=== PATIENT | female | born 1970 ===

== ENCOUNTER 2021-10-28 18:01 | Inpatient (IN) | payer MEDICAID ==
--- NOTE | 2021-10-28 18:12 | Emergency Department Report ---
ED Neuro Deficit HPI - General Stated Complaint: STROKE Time Seen by Provider: 10/28/21 18:04 - History of Present Illness Initial Comments: Patient is a 49-year-old female brought in by EMS for code stroke. Last known well time was approximately 15 minutes prior to arrival. EMS reports patient has had roughly 10 TIAs/CVAs in the past year. Her current symptoms include left-sided facial droop, left-sided weakness and numbness. - Related Data Allergies/Adverse Reactions: Allergies Allergy/AdvReac Type Severity Reaction Status Date / Time Penicillins Allergy Hives Verified 10/28/21 18:55 ED Review of Systems ROS: Stated complaint: STROKE Other details as noted in HPI Constitutional: denies: chills, fever Respiratory: denies: cough, shortness of breath, wheezing Cardiovascular: denies: chest pain, palpitations Gastrointestinal: denies: abdominal pain, nausea, diarrhea Musculoskeletal: denies: back pain, joint swelling, arthralgia Skin: denies: rash, lesions Neurological: denies: headache, weakness, paresthesias Psychiatric: denies: anxiety, depression ED Neuro Physical Exam - General Limitations: Physical Limitation General appearance: alert, in no apparent distress Suspected Stroke: Yes - Head Head exam: Present: atraumatic, normocephalic - Eye Eye exam: Present: normal appearance, EOMI - Respiratory Respiratory exam: Present: normal lung sounds bilaterally. Absent: respiratory distress - Cardiovascular Cardiovascular Exam: Present: regular rate, normal rhythm, normal heart sounds - GI/Abdominal GI/Abdominal exam: Present: soft. Absent: distended, tenderness - Rectal Rectal exam: Present: deferred - Neurological Exam Neurological exam: Present: alert, oriented X3 - NIHSS Assessment Interval: Baseline 1a. Level of Consciousness: alert/keenly responsive 1b. LOC Questions: answers both correctly 1c. LOC Commands: performs tasks correctly 2. Best Gaze: normal 3. Visual: no visual loss 4. Facial Palsy: unilateral complete paralysis 5b. Motor Arm Right: no drift 5a. Motor Arm Left: no movement 6a. Motor Leg Left: no movement 6b. Motor Leg Right: no drift 7. Limb Ataxia: absent 8. Sensory: severe/total sensory loss 9. Best Language: no aphasia 10. Dysarthria: mild/moderate dysarthria 11. Extinction/Inattention: no abnormality Total Score: 14 Stroke Severity: Moderate Stroke - Psychiatric Psychiatric exam: Present: normal affect, normal mood - Skin Skin exam: Present: warm, dry, intact, normal color ED Course Vital Signs 10/28/21 10/28/21 10/28/21 18:41 18:46 18:50 Temperature 97.8 F Pulse Rate 71 69 Pulse Rate [ Left Arm] Respiratory 10 L 20 Rate Respiratory Rate [Left Arm] Blood Pressure 119/63 Blood Pressure [Left Arm] O2 Sat by Pulse 99 Oximetry O2 Sat by Pulse Oximetry [Left Arm] 10/28/21 10/28/21 10/28/21 18:51 19:00 19:16 Temperature Pulse Rate 72 73 Pulse Rate [ Left Arm] Respiratory 16 18 12 Rate Respiratory Rate [Left Arm] Blood Pressure 112/58 126/71 Blood Pressure [Left Arm] O2 Sat by Pulse 99 100 Oximetry O2 Sat by Pulse Oximetry [Left Arm] 10/28/21 10/28/21 10/28/21 19:30 19:45 19:59 Temperature Pulse Rate 66 66 Pulse Rate [ 68 Left Arm] Respiratory 21 14 Rate Respiratory 14 Rate [Left Arm] Blood Pressure 123/69 120/65 Blood Pressure 124/64 [Left Arm] O2 Sat by Pulse 100 100 Oximetry O2 Sat by Pulse 100 Oximetry [Left Arm] 10/28/21 10/28/21 10/28/21 20:00 20:14 20:16 Temperature Pulse Rate 65 65 Pulse Rate [ 65 Left Arm] Respiratory 15 13 Rate Respiratory 13 Rate [Left Arm] Blood Pressure 119/66 118/71 Blood Pressure 122/67 [Left Arm] O2 Sat by Pulse 100 100 Oximetry O2 Sat by Pulse 100 Oximetry [Left Arm] 10/28/21 10/28/21 20:29 20:30 Temperature Pulse Rate 67 Pulse Rate [ 70 Left Arm] Respiratory 19 Rate Respiratory 14 Rate [Left Arm] Blood Pressure 123/72 Blood Pressure 123/72 [Left Arm] O2 Sat by Pulse 100 Oximetry O2 Sat by Pulse 100 Oximetry [Left Arm] - Lab Data Result diagrams: 10/28/21 Unknown 10/28/21 Unknown Lab Results 10/28/21 10/28/21 10/28/21 Range/Units Unknown Unknown Unknown WBC 4.4 L (4.5-11.0) K/mm3 RBC 3.91 (3.65-5.03) M/mm3 Hgb 12.4 (10.1-14.3) gm/dl Hct 35.9 (30.3-42.9) % MCV 92 (79-97) fl MCH 32 (28-32) pg MCHC 35 H (30-34) % RDW 12.9 L (13.2-15.2) % Plt Count 113 L (140-440) K/mm3 Lymph % (Auto) 33.2 (13.4-35.0) % [place] % (Auto) 7.8 H (0.0-7.3) % Eos % (Auto) 3.5 (0.0-4.3) % Baso % (Auto) 0.5 (0.0-1.8) % Lymph # (Auto) 1.5 (1.2-5.4) K/mm3 [place] # (Auto) 0.3 (0.0-0.8) K/mm3 Eos # (Auto) 0.2 (0.0-0.4) K/mm3 Baso # (Auto) 0.0 (0.0-0.1) K/mm3 Seg Neutrophils % 55.0 (40.0-70.0) % Seg Neutrophils # 2.4 (1.8-7.7) K/mm3 PT 14.7 (12.2-14.9) Sec. INR 1.03 (0.87-1.13) APTT 27.6 (24.2-36.6) Sec. Thrombin Time 25.7 H (15.1-19.6) Sec. Sodium 135 L (137-145) mmol/L Potassium 3.9 (3.6-5.0) mmol/L Chloride 101.5 (98-107) mmol/L Carbon Dioxide 22 (22-30) mmol/L Anion Gap 15 mmol/L BUN 14 (7-17) mg/dL Creatinine 0.5 L (0.6-1.2) mg/dL Estimated GFR > 60 ml/min BUN/Creatinine Ratio 28 % Glucose 432 H (65-100) mg/dL Calcium 8.5 (8.4-10.2) mg/dL Total Bilirubin 0.50 (0.1-1.2) mg/dL AST 63 H (5-40) units/L ALT 70 H (7-56) units/L Alkaline Phosphatase 253 H (35-129) units/L Total Creatine Kinase 34 (30-135) units/L CK-MB (CK-2) 1.5 (0.0-4.0) ng/mL CK-MB (CK-2) Rel Index 4.4 H (0-4) Troponin T < 0.010 (0.00-0.029) ng/mL Total Protein 6.8 (6.3-8.2) g/dL Albumin 3.3 L (3.9-5) g/dL Albumin/Globulin Ratio 0.9 % - Medical Decision Making Patient brought in by EMS for code stroke. CT head shows no acute abnormality. Telemetry neurology consult obtained. Stroke scale is 14. Patient is a candidate for tPA and agrees to treatment. tPA administration delayed as patient endorsed chest pain for which CTA chest was ordered. tPA initiated immediately after CTA results obtained. Approximately 20-30 minutes after initiation of severe depression complaint of chest pain. tPA infusion discontinued. No acute changes on EKG. I discussed case with ICU attending. Will admit ICU 24-hour observation. Critical care attestation.: If time is entered above; I have spent that time in minutes in the direct care of this critically ill patient, excluding procedure time. ED Disposition Clinical Impression: CVA (cerebral vascular accident) Disposition: 09 ADMITTED INPATIENT Is pt being admited?: Yes Condition: Stable
[2021-10-28 18:18] LABS: INR 1.03 (0.87-1.13)
[2021-10-28 18:19] LABS: Partial Thromboplastin Time 27.6 Sec. (24.2-36.6); Thrombin Time 25.7 Sec. (15.1-19.6)
[2021-10-28 18:25] LABS: Basophils % (Auto) 0.5 % (0.0-1.8); Eosinophils # (Auto) 0.2 K/mm3 (0.0-0.4); Eosinophils % (Auto) 3.5 % (0.0-4.3); Hematocrit 35.9 % (30.3-42.9); Hemoglobin 12.4 gm/dl (10.1-14.3); Lymphocytes # (Auto) 1.5 K/mm3 (1.2-5.4); Lymphocytes % (Auto) 33.2 % (13.4-35.0); Mean Corpuscular HGB Conc 35 % (30-34); Mean Corpuscular Volume 92 fl (79-97); Monocytes # (Auto) 0.3 K/mm3 (0.0-0.8); Monocytes % (Auto) 7.8 % (0.0-7.3); Platelet Count 113 K/mm3 (140-440); Red Blood Count 3.91 M/mm3 (3.65-5.03); Red Cell Distribution Width 12.9 % (13.2-15.2)
--- NOTE | 2021-10-28 18:33 | Cat Scan Report ---
Name of this patient is unknown at the time of this report. The patient study is labeled "emergency, medical (49 YF)." CT HEAD WITHOUT CONTRAST INDICATION / CLINICAL INFORMATION: Stroke symptoms. TECHNIQUE: All CT scans at this location are performed using CT dose reduction for ALARA by means of automated e xposure control. COMPARISON: None available. FINDINGS: HEMORRHAGE: No evidence of intracranial hemorrhage or extra-axial fluid collection. EXTRA-AXIAL SPACES: Cortical sulci, sylvian fissures and basilar cisterns have an unremarkable appear ance. VENTRICULAR SYSTEM: The third and lateral ventricles are of normal size and configuration. CEREBRAL PARENCHYMA: No areas of abnormal brain parenchymal attenuation are identified. There is no i ndication of recent infarction. MIDLINE SHIFT OR HERNIATION: There is no mass effect. CEREBELLUM / BRAINSTEM: Brainstem and cerebellum have an unremarkable appearance. MIDLINE STRUCTURES:No abnormalities of the pituitary gland or pineal region are identified. INTRACRANIAL VESSELS:No abnormalities are identified on this noncontrast head CT. ORBITS: visualized portions of the orbits have an unremarkable appearance. SOFT TISSUES of HEAD: No significant abnormality. CALVARIUM: Evaluation of bone windows reveals no abnormalities. PARANASAL SINUSES / MASTOID AIR CELLS: Visualized portions of the paranasal sinuses are free from inf lammatory mucosal disease. Mastoid air cells are normally pneumatized. ADDITIONAL FINDINGS: None. IMPRESSION: 1. No significant intracranial abnormality. CODE STROKE: Time of Communication (PRESCHOOL AIDE/CDT): 1727 Central standard time Licensed Practitioner Receiving Report: Dr. Gonsales of the [facility] emergency d epartment. Signer Name: Jamison Camarillo MD Signed: 10/28/2021 6:28 PM Workstation Name: [employer]
[2021-10-28 18:36] LABS: Creatine Kinase MB 1.5 ng/mL (0.0-4.0)
[2021-10-28 18:37] LABS: Alanine Aminotransferase 70 units/L (7-56); Albumin 3.3 g/dL (3.9-5); BUN/Creatinine Ratio 28; Blood Urea Nitrogen 14 mg/dL (7-17); Calcium 8.5 mg/dL (8.4-10.2); Hemolysis Index 10
--- NOTE | 2021-10-28 19:02 | Cat Scan Report ---
CT angio neck INDICATION / CLINICAL INFORMATION: 49 years Female; stroke sx 100ml of [id number]. TECHNIQUE: Thin cut axial images obtained through the head during IV bolus contrast administration. S agittal, coronal, and 3 plane MIP reconstructions performed by the technologist. NASCET type criteria used evaluate stenoses. All CT scans at this location are performed using CT dose reduction for ALAR A by means of automated exposure control. . COMPARISON: None available. FINDINGS: ARCH: Normal aortic arch branching suggested. CAROTID ARTERIES: The visualized common and internal carotid arteries are widely patent. Minimal athe rosclerotic disease seen. VERTEBRAL ARTERIES: Slight left dominant vertebral system seen. No significant stenosis appreciated. ADDITIONAL FINDINGS: Remainder of the surrounding soft tissues are grossly normal. IMPRESSION: No significant stenosis appreciated on this CTA of the neck. Signer Name: Chito Parker MD, III Signed: 10/28/2021 6:57 PM Workstation Name: [id number]
--- NOTE | 2021-10-28 19:05 | Cat Scan Report ---
CTA CHEST WITH CONTRAST INDICATION / CLINICAL INFORMATION: Chest pain stroke sx 100ml of [id number]. TECHNIQUE: Axial CT images were obtained through the chest after injection of IV contrast. [address] P and/or 3D reconstructions were produced. All CT scans at this location are performed using CT dose reduction for ALARA by means of automated exposure control. COMPARISON: None available. FINDINGS: PULMONARY EMBOLUS: None. THORACIC AORTA: No significant abnormality. HEART: No significant abnormality. CORONARY ARTERY CALCIFICATION: Present -- Mild. MEDIASTINUM / RAMO: No significant abnormality. PLEURA: No pleural effusion. No pneumothorax. LUNGS: No acute air space or interstitial disease. Accessory azygos fissure is incidentally noted. ADDITIONAL FINDINGS: None. UPPER ABDOMEN: No acute findings. SKELETAL STRUCTURES: No significant osseous abnormality. IMPRESSION: 1. No CT evidence for pulmonary embolism. 2. No acute findings. Signer Name: Imtiaz Morris MD Signed: 10/28/2021 7:01 PM Workstation Name: [id number]
[2021-10-28] MEDS ORDERED: ALTEPLASE 100 MG INJ KIT IV ONE ×2 (19:15)
[2021-10-28] MEDS ORDERED: SODIUM CHLORIDE 0.9% 50 ML IVPB IV ONE (19:15)
--- NOTE | 2021-10-28 19:39 | Cat Scan Report ---
CT angio head INDICATION / CLINICAL INFORMATION: 49 years Female; stroke sx 100ml of [id number]. TECHNIQUE: Thin cut axial images obtained through the head during IV bolus contrast administration. S agittal, coronal, and 3 plane MIP reconstructions performed by the technologist. NASCET type criteria used evaluate stenoses. Automated exposure control utilized for radiation reduction purposes. . COMPARISON: None available. FINDINGS: INTERNAL CAROTID ARTERIES: No significant narrowing appreciated. VERTEBROBASILAR SYSTEM: Slight left dominant vertebral artery is seen. 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 DISTAL BRANCHES: Distal branches of the anterior, middle, and posterior cerebral arteries are fairly symmetric in appearance and number. The P1 segment on the right is hypoplastic. A majority of blood flow to the right DIRECTOR OF PRIMARY CARE territory is vi a posterior communicating artery on the right. ANEURYSM: None identified. ADDITIONAL FINDINGS: Remainder of the surrounding soft tissues are grossly normal. IMPRESSION: 1. No significant narrowing appreciated on this CTA of the head. Signer Name: Chito Parker MD, III Signed: 10/28/2021 7:35 PM Workstation Name: [facility]ENTERIntegr[facility] Digital SolutionsASHLEY [email or web address] [id number]
[2021-10-28] MEDS ORDERED: PROMETHAZINE 25 MG RECT SUPP PR PRN (20:19)
[2021-10-28] MEDS ORDERED: ACETAMINOPHEN 325 MG TAB PO PRN (20:19)
[2021-10-28] MEDS ORDERED: ONDANSETRON 4 MG/2 ML INJ IV PRN (20:19)
[2021-10-28] MEDS ORDERED: METOCLOPRAMIDE 10 MG TAB PO PRN (20:19)
[2021-10-28] MEDS ORDERED: oxyCODONE /ACETAMINOPHEN 5-325MG TAB PO PRN (20:19)
[2021-10-28] MEDS ORDERED: MAGNESIUM HYDROXIDE (MOM) ORAL LIQD UDC PO PRN (20:19)
[2021-10-28] MEDS ORDERED: MORPHINE 4 MG/1 ML INJ IV PRN (20:19)
--- NOTE | 2021-10-28 20:23 | History and Physical Report ---
History of Present Illness Chief complaint: I feel weak on the left side and I could not talk History of present illness: 51 YO Female with recurrent CVA treated with Aspirin, Obesity, Seizure Disorder, DM presents ED for evaluation. Patient states that she had experienced a sudden onset of left-sided weakness facial droop and slurred speech. EMS was notified and upon arrival the patient was found to have a focal neurologic deficit. A code stroke was called and the patient was subsequently transported to [facility] for further care and evaluation of the aforementioned symptoms. The patient was seen and evaluated emergency department. All lab and imaging studies reviewed. Patient found to have clinical symptoms of acute CVA and was treated with tPA in the emergency department with improvement in symptoms. Patient admitted to ICU and initiated on CVA protocol. Critical care team consulted in ED. Patient de nies fever, chills, chest pain, palpitation, productive cough, trauma, skin rash, recent contact, or known exposure to COVID-19. No prior admission for review. No medication listed at time of admission for reconciliation. Advanced care planning conducted in ED. Past History Past Medical History: diabetes, seizures, stroke Past Surgical History: No surgical history, Other (Reviewed) Social history: , lives with family. denies: smoking, alcohol abuse, prescription drug abuse Family history: diabetes, hypertension Medications and Allergies Allergies Allergy/AdvReac Type Severity Reaction Status Date / Time Penicillins Allergy Hives Verified 10/28/21 18:55 Review of Systems Constitutional: no weight loss, no weight gain, no chills, no night sweats Ears, nose, mouth and throat: no ear pain, no tinnitis, no decreased hearing, no nasal congestion, no nasal discharge, no sinus pain Breasts: no change in shape, no swelling Cardiovascular: no chest pain, no palpitations, no rapid/irregular heart beat, no syncope, no lightheadedness Respiratory: no cough, no cough with sputum, no shortness of breath, no dyspnea on exertion Gastrointestinal: no abdominal pain, no vomiting, no diarrhea, no hematemesis Genitourinary Female: no pelvic pain, no flank pain, no dysuria Rectal: no pain, no incontinence, no bleeding Musculoskeletal: no neck stiffness, no shooting arm pain, no low back pain, no redness of joints Integumentary: no rash, no redness, no sores, no jaundice, no boils Neurological: weakness, numbness, change in speech, gait dysfunction Psychiatric: no anxiety, no change in sleep habits, no sleep disturbances, no hypersomnia, no change in appetite, no change in libido Endocrine: no cold intolerance, no polyphagia, no excessive thirst, no polyuria Hematologic/Lymphatic: no easy bruising, no easy bleeding Allergic/Immunologic: no urticaria, no allergic rhinitis, no wheezing Exam - Constitutional Vitals: Temp Pulse Resp BP Pulse Ox 97.8 F 65 13 122/67 100 10/28/21 18:50 10/28/21 20:14 10/28/21 20:14 10/28/21 20:14 10/28/21 20:14 General appearance: Present: mild distress, obese - EENT Eyes: Present: PERRL ENT: hearing intact, clear oral mucosa - Neck Neck: Present: supple, normal ROM - Respiratory Respiratory effort: normal Respiratory: bilateral: CTA - Cardiovascular Heart Sounds: Present: S1 & S2. Absent: rub, click - Extremities Extremities: pulses symmetrical, No edema Peripheral Pulses: within normal limits - Abdominal General gastrointestinal: Present: soft, non-tender, non-distended, normal bowel sounds Female genitourinary: Present: normal - Integumentary Integumentary: Present: clear, warm, dry - Musculoskeletal Musculoskeletal: left sided weakness - Psychiatric Psychiatric: appropriate mood/affect, intact judgment & insight - Neurologic Neurologic: CNII-XII intact, moves all extremities HEART Score - HEART Score Troponin: Troponin T < 0.010 ng/mL (0.00-0.029) 10/28/21 Unknown Results - Labs CBC & Chem 7: 10/28/21 Unknown 10/28/21 Unknown Labs: Abnormal lab results 10/28/21 10/28/21 10/28/21 Range/Units Unknown Unknown Unknown WBC 4.4 L (4.5-11.0) K/mm3 MCHC 35 H (30-34) % RDW 12.9 L (13.2-15.2) % Plt Count 113 L (140-440) K/mm3 [place] % (Auto) 7.8 H (0.0-7.3) % Thrombin Time 25.7 H (15.1-19.6) Sec. Sodium 135 L (137-145) mmol/L Creatinine 0.5 L (0.6-1.2) mg/dL Glucose 432 H (65-100) mg/dL AST 63 H (5-40) units/L ALT 70 H (7-56) units/L Alkaline Phosphatase 253 H (35-129) units/L CK-MB (CK-2) Rel Index 4.4 H (0-4) Albumin 3.3 L (3.9-5) g/dL Assessment and Plan - Patient Problems (1) CVA (cerebral vascular accident) Status: Acute Plan to address problem: CVA protocol: CT head, patient treated with tPA in the emergency department. Patient admitted to ICU. Critical care team consulted, monitor blood pressure per nursing care protocol, continue medical management. The high probability of a clinically significant, sudden or life threatening deterioration of the [neuro, endocrine] system(s) required my full and direct attention, intervention and personal management. The aggregate critical care time was [65] minutes. This time is in addition to time spent performing reported procedures but includes the following: [x] Data Review and interpretation [x] Patient assessment and monitoring of vital signs [x] Documentation [x] Medication orders and management (2) Left hemiparesis Status: Acute Plan to address problem: Physical therapy consulted (3) Seizure disorder Status: Acute Plan to address problem: No acute activity this time, continue medical management. (4) Obesity (BMI 30.0-34.9) Status: Acute Plan to address problem: Balanced diet, increase physical activity discharge. (5) Diabetes Status: Acute Plan to address problem: Consistent carbohydrate diet, Accu-Chek, insulin protocol, hypoglycemia protocol. (6) DVT prophylaxis Status: Acute Plan to address problem: SCDs bilateral lower extremities while in bed (7) Advance care planning Status: Acute Plan to address problem: Disease education data, care plan discussed, diagnosis discussed, prognosis discussed, patient is full code. Patient knowledges understanding and agreement with care plan, +30 minutes. (8) Preventative health care Status: Acute Plan to address problem: Patient counseled regarding risk factor reduction, antiplatelet therapy, outpatient follow-up with primary care physician for all age and risk factor appropriate screening test. +30 minutes.
[2021-10-28] MEDS ORDERED: SODIUM CHLORIDE 0.9% 1000 ML 1,000 ML IV ONE (20:27)
[2021-10-28] MEDS ORDERED: INSULIN REGULAR, HUMAN 100 UNITS/1 ML IV ONE ×2 (20:28→20:58)
[2021-10-28] MEDS ORDERED: DEXTROSE 50% IN WATER (25GM) 50 ML SYRINGE IV PRN (20:38)
[2021-10-28] MEDS ORDERED: MORPHINE 4 MG/1 ML INJ IV ONE (20:47)
[2021-10-29 06:33] LABS: Chol/HDL Ratio 3.52 %
--- NOTE | 2021-10-29 09:04 | Consultation ---
History of Present Illness Consult date: 10/29/21 Requesting physician: SOLOMON REYES Reason for consult: other (CVA s/pTPA) History of present illness: This is a 51-year-old female with known past medical history of recurrent TIA/CVA, seizure disorder, type 2 DM, and current tobacco dependence admitted for acute CVA s/p tPA She has been admitted into the ICU for neuro checks and monitoring post tPA. Patient seen and examined. Vitals,labs, medications, chart and imaging reviewed. She denies any chest pain, no shortness of breath No fevers or chills. her is at the bedside. Past History Past Medical History: diabetes, seizures, stroke Past Surgical History: No surgical history, Other (Reviewed) Social history: , lives with family. denies: smoking, alcohol abuse, prescription drug abuse Family history: diabetes, hypertension Medications and Allergies Allergies Allergy/AdvReac Type Severity Reaction Status Date / Time Penicillins Allergy Hives Verified 10/28/21 18:55 Home Medications Medication Instructions Recorded Confirmed Last Taken Type Dilantin 300 mg PO QHS 10/29/21 10/29/21 Unknown History Aspirin 325 mg PO QDAY #90 tablet 10/30/21 Unknown Rx AtorvaSTATin [Lipitor] 40 mg PO QHS #90 tablet 10/30/21 Unknown Rx Insulin Glargine [Lantus VIAL] 15 units SUB-Q QHS #90 vial 10/30/21 Unknown Rx Lispro Insulin [HumaLOG] See Protocol SUB-Q ACHS #90 vial 10/30/21 Unknown Rx Active Meds: Active Medications Acetaminophen (Acetaminophen 325 Mg Tab) 650 mg PO Q4H PRN PRN Reason: Pain, Mild (1-3) Aspirin (Aspirin 325 Mg Tab) 325 mg PO QDAY ANN MARIE Atorvastatin Calcium (Atorvastatin 40 Mg Tab) 40 mg PO QHS ANN MARIE Last Admin: 10/29/21 03:17 Dose: 40 mg Bisacodyl (Bisacodyl 10 Mg Rect Supp) 10 mg [place] QDAY PRN PRN Reason: Constipation Dextrose (Dextrose 50% In Water (25gm) 50 Ml Syringe) 50 ml IV Q30MIN PRN; Protocol PRN Reason: Hypoglycemia Insulin Human Lispro (Insulin Lispro 100 Unit/Ml) 0 unit SUB-Q Q6HR ANN MARIE; Protocol Magnesium Hydroxide (Magnesium Hydroxide (Mom) Oral Liqd Udc) 30 ml PO Q4H PRN PRN Reason: Constipation Metoclopramide HCl (Metoclopramide 10 Mg Tab) 10 mg PO Q6H PRN PRN Reason: Nausea And Vomiting Morphine Sulfate (Morphine 4 Mg/1 Ml Inj) 2 mg IV Q14H PRN PRN Reason: Pain , Severe (7-10) Ondansetron HCl (Ondansetron 4 Mg/2 Ml Inj) 4 mg IV Q8H PRN PRN Reason: Nausea And Vomiting Oxycodone/Acetaminophen (Oxycodone /Acetaminophen 5-325mg Tab) 1 tab PO Q6H PRN PRN Reason: Pain, Moderate (4-6) Promethazine HCl (Promethazine 25 Mg Rect Supp) 25 mg [place] Q6H PRN PRN Reason: Nausea And Vomiting Sodium Chloride (Sodium Chloride 0.9% 10 Ml Flush Syringe) 10 ml IV PRN PRN PRN Reason: LINE FLUSH Review of Systems Constitutional: no weight loss, no weight gain, no fever, no chills Respiratory: no cough, no cough with sputum, no hemoptysis, no shortness of breath, no dyspnea on exertion Gastrointestinal: no abdominal pain, no nausea, no vomiting, no diarrhea Neurological: no paralysis, no weakness, no parathesias, no seizures, no ataxia Psychiatric: no anxiety, no memory loss, no disorientation, no hallucinations Physical Examination Vital signs: Vital Signs Pulse Resp 71 10 L 10/28/21 18:41 10/28/21 18:41 General appearance: no acute distress, alert Eyes: non-icteric ENT: oropharynx moist Neck: supple, no lymphadenopathy, no JVD Effort: normal Ascultation: Bilateral: clear Cardiovascular: regular rate and rhythm, other (S1,S2) Gastrointestinal: normoactive bowel sounds, soft, non-tender Integumentary: normal Extremities: no cyanosis, no edema, pulses normal normal mental status, non-focal exam, pupils equal and round, motor strength normal and mood appropriate, affect normal Results - Laboratory Findings CBC and BMP: 10/30/21 04:21 10/30/21 04:21 PT/INR, D-dimer PT 14.7 Sec. (12.2-14.9) 10/28/21 Unknown INR 1.03 (0.87-1.13) 10/28/21 Unknown Abnormal lab findings: Abnormal Labs 10/28/21 10/28/21 10/28/21 20:50 Unknown Unknown WBC 4.4 L MCHC 35 H RDW 12.9 L Plt Count 113 L [place] % (Auto) 7.8 H Thrombin Time 25.7 H Sodium Creatinine Glucose POC Glucose 329 H AST ALT Alkaline Phosphatase CK-MB (CK-2) Rel Index Albumin HDL Cholesterol 10/28/21 10/29/21 Unknown 06:03 WBC MCHC RDW Plt Count [place] % (Auto) Thrombin Time Sodium 135 L Creatinine 0.5 L Glucose 432 H POC Glucose AST 63 H ALT 70 H Alkaline Phosphatase 253 H CK-MB (CK-2) Rel Index 4.4 H Albumin 3.3 L HDL Cholesterol 38 L - Diagnostic Findings Chest x-ray: image reviewed CT scan - chest: image reviewed Assessment and Plan Acute CVA (Cerebrovascular Accident) s/p tPA History of multiple TIA/CVA - Presented with sudden onset of left-sided weakness, left facial droop, and slurred speech - CT head with No acute findings; CTA Neck/head with no significant stenosis - TeleNeurology saw patient in the ED, - tPA was administered, however patient did not complete full dose. tPA was held due to patient c/o CP - Symptoms resolved this am, no neuro deficits appreciated - Repeat CT head/brain 24hrs post tPA - MRI brain and 2D Echo pending - Statin initiated - ASA and prophy AC to start tomorrow, 24hrs post TPA - Continue Neuro check per protocol - PT/OT/Speech ordered - Neurology consulted Chest Pain-resolved - Patient c/o of CP in the ED while receiving tPA. Did not complete tPA dose - EKG with SR, no significant ST changes appreciated - Troponin neg X1 - Patient denied any CP, palpitation, nor any discomfort this am - CTA chest reviewed no evidence of PE - Continue CP protocol - ASA and prophy AC to start tomorrow, 24hrs post TPA Type 2 Diabetes Mellitus with Hyperglycemia h/o Seizure Disorde Current Cigarette Smoker - Smoking cessation education provided - Nicotine withdrawal precautions Obesity (BMI 30.0-34.9) DVT Prophylaxis - PPI- Pepcid - SCDs to bilateral lower extremities while in bed The high probability of a clinically significant, sudden or life threatening deterioration of the Neurology system(s) required my full and direct attention, intervention and personal management. The aggregate critical care time was [32] minutes. This time is in addition to time spent performing reported procedures but includes the following: [x] Data Review and interpretation [x] Patient assessment and monitoring of vital signs [x] Documentation
[2021-10-29] MEDS ORDERED: ASPIRIN 325 MG TAB PO SCH (10:00)
--- NOTE | 2021-10-29 10:23 | Progress Note ---
<ANDREWS GARCIA - Last Filed: 10/29/21 17:52> Assessment and Plan Assessment and plan: This is a 51-year-old female with known past medical history of recurrent TIA/CVA, seizure disorder, type 2 DM, and current tobacco dependence admitted for acute CVA s/p tPA Hospital Course to Date: 10/29: Fully AAO, on RA, no neuro deficits appreciated. Will repeat CT head/brain 24hrs post tPA. MRI brain and 2D echo also pending. Neurology consulted. Statin initiated, ASA and proph AC to start tomorrow, 24hrs post tPA. PT/OT/Speech ordered. Thorough discussion with patient in regards of condition and plan of care at the bedside. All questions and concerns were addressed at this time. Possible transfer to Telemetry in the morning if patient remains stable. [facility] is also following. Assessment and Plan #Acute CVA (Cerebrovascular Accident) s/p tPA #History of multiple TIA/CVA - Presented with sudden onset of left-sided weakness, left facial droop, and slurred speech - CT head with No acute findings; CTA Neck/head with no significant stenosis - TeleNeurology saw patient in the ED, - tPA was administered, however patient did not complete full does. tPA was held due to patient c/o CP - Symptoms resolved this am, no neuro deficits appreciated - Repeat CT head/brain 24hrs post tPA - MRI brain and 2D Echo pending - Statin initiated - ASA and prophy AC to start tomorrow, 24hrs post TPA - Continue Neuro check per protocol - PT/OT/Speech ordered - Neurology consulted - [facility]CM is also following #Chest Pain-resolved - Patient c/o of CP in the ED while receiving tPA. tPA was hel - EKG with SR, no significant ST changes appreciated - Troponin neg X1 - Patient denied any CP, palpitation, nor any discomfort this am - CTA chest reviewed no evidence of PE - Continue CP protocol - ASA and prophy AC to start tomorrow, 24hrs post TPA #Type 2 Diabetes Mellitus with Hyperglycemia - Insulin dependent per patient, however, patient can't recall insulin name - Family to bring medications list - Hgb A1c pending - SSI and BG check initiated ACHS - Lantus also added qhs for better control - While critically ill target blood glucose of 140-180 #Seizure Disorder - No acute activity this time, continue medical management. - Patient voiced she was on Dilantin, but she has not taking it for over a year - Resume home meds once list is available #Current Cigarette Smoker - Over 30 years cigarettes smoker, per patient a pack of cigarette last her a week - Smoking cessation education provided and quit line resource provided. Patient verbalized understanding and agree with current info - Nicotine patch ordered #Obesity (BMI 30.0-34.9) - Balanced diet, increase physical activity discharge. #GI/DVT Prophylaxis - PPI- Pepcid - SCDs to bilateral lower extremities while in bed #Advance Care Planning - Disease education data, care plan, diagnoses, and prognosis were discussed with patient at the bedside. Patient is a FULL code. Patient acknowledged understanding and agreed with current care plan. The high probability of a clinically significant, sudden or life threatening deterioration of the [multiple] system(s) required my full and direct attention, intervention and personal management. The aggregate critical care time was [60] minutes. This time is in addition to time spent performing reported procedures but includes the following: [x] Data Review and interpretation [x] Patient assessment and monitoring of vital signs [x] Documentation [x] Medication orders and management Disposition Plan: ICU Total Time Spent with Patient (Minutes): 60 History Interval history: Patient seen and examined at the bedside. Fully AAO, on RA, denied any pain nor any discomfort at this time. Patient is s/p tPA, no neuro deficits appreciated, VSS Hospitalist Physical - Constitutional Vitals: Temp Pulse Resp BP Pulse Ox 97.8 F 61 17 132/60 100 10/28/21 18:50 10/29/21 10:10 10/29/21 10:10 10/29/21 10:10 10/29/21 10:10 General appearance: Present: no acute distress - EENT Eyes: Present: PERRL, EOM intact ENT: hearing intact, clear oral mucosa - Neck Neck: Present: normal ROM - Respiratory Respiratory effort: normal Respiratory: bilateral: diminished - Cardiovascular Rhythm: regular Heart Sounds: Present: S1 & S2 - Extremities Extremities: no ischemia, pulses intact, pulses symmetrical Peripheral Pulses: within normal limits - Abdominal General gastrointestinal: soft, non-distended, normal bowel sounds - Integumentary Integumentary: Present: clear, warm, dry - Psychiatric Psychiatric: appropriate mood/affect, cooperative - Neurologic Neurologic: CNII-XII intact, moves all extremities - Allied Health Allied health notes reviewed: nursing HEART Score - HEART Score Troponin: Troponin T < 0.010 ng/mL (0.00-0.029) 10/28/21 Unknown Results - Labs CBC & Chem 7: 10/28/21 Unknown 10/28/21 Unknown Labs: Laboratory Last Values WBC 4.4 K/mm3 (4.5-11.0) L 10/28/21 Unknown RBC 3.91 M/mm3 (3.65-5.03) 10/28/21 Unknown Hgb 12.4 gm/dl (10.1-14.3) 10/28/21 Unknown Hct 35.9 % (30.3-42.9) 10/28/21 Unknown MCV 92 fl (79-97) 10/28/21 Unknown MCH 32 pg (28-32) 10/28/21 Unknown MCHC 35 % (30-34) H 10/28/21 Unknown RDW 12.9 % (13.2-15.2) L 10/28/21 Unknown Plt Count 113 K/mm3 (140-440) L 10/28/21 Unknown Lymph % (Auto) 33.2 % (13.4-35.0) 10/28/21 Unknown [place] % (Auto) 7.8 % (0.0-7.3) H 10/28/21 Unknown Eos % (Auto) 3.5 % (0.0-4.3) 10/28/21 Unknown Baso % (Auto) 0.5 % (0.0-1.8) 10/28/21 Unknown Lymph # (Auto) 1.5 K/mm3 (1.2-5.4) 10/28/21 Unknown [place] # (Auto) 0.3 K/mm3 (0.0-0.8) 10/28/21 Unknown Eos # (Auto) 0.2 K/mm3 (0.0-0.4) 10/28/21 Unknown Baso # (Auto) 0.0 K/mm3 (0.0-0.1) 10/28/21 Unknown Seg Neutrophils % 55.0 % (40.0-70.0) 10/28/21 Unknown Seg Neutrophils # 2.4 K/mm3 (1.8-7.7) 10/28/21 Unknown PT 14.7 Sec. (12.2-14.9) 10/28/21 Unknown INR 1.03 (0.87-1.13) 10/28/21 Unknown APTT 27.6 Sec. (24.2-36.6) 10/28/21 Unknown Thrombin Time 25.7 Sec. (15.1-19.6) H 10/28/21 Unknown Sodium 135 mmol/L (137-145) L 10/28/21 Unknown Potassium 3.9 mmol/L (3.6-5.0) 10/28/21 Unknown Chloride 101.5 mmol/L (98-107) 10/28/21 Unknown Carbon Dioxide 22 mmol/L (22-30) 10/28/21 Unknown Anion Gap 15 mmol/L 10/28/21 Unknown BUN 14 mg/dL (7-17) 10/28/21 Unknown Creatinine 0.5 mg/dL (0.6-1.2) L 10/28/21 Unknown Estimated GFR > 60 ml/min 10/28/21 Unknown BUN/Creatinine Ratio 28 % 10/28/21 Unknown Glucose 432 mg/dL (65-100) H 10/28/21 Unknown POC Glucose 260 mg/dL (70-105) H 10/29/21 08:05 Calcium 8.5 mg/dL (8.4-10.2) 10/28/21 Unknown Total Bilirubin 0.50 mg/dL (0.1-1.2) 10/28/21 Unknown AST 63 units/L (5-40) H 10/28/21 Unknown ALT 70 units/L (7-56) H 10/28/21 Unknown Alkaline Phosphatase 253 units/L (35-129) H 10/28/21 Unknown Total Creatine Kinase 34 units/L (30-135) 10/28/21 Unknown CK-MB (CK-2) 1.5 ng/mL (0.0-4.0) 10/28/21 Unknown CK-MB (CK-2) Rel Index 4.4 (0-4) H 10/28/21 Unknown Troponin T < 0.010 ng/mL (0.00-0.029) 10/28/21 Unknown Total Protein 6.8 g/dL (6.3-8.2) 10/28/21 Unknown Albumin 3.3 g/dL (3.9-5) L 10/28/21 Unknown Albumin/Globulin Ratio 0.9 % 10/28/21 Unknown Triglycerides 126 mg/dL (2-149) 10/29/21 06:03 Cholesterol 134 mg/dL (50-199) 10/29/21 06:03 LDL Cholesterol Direct 76 mg/dL (50-130) 10/29/21 06:03 HDL Cholesterol 38 mg/dL (40-59) L 10/29/21 06:03 Cholesterol/HDL Ratio 3.52 % 10/29/21 06:03 Active Medications - Current Medications Current Medications: Generic Name Dose Route Start Last Admin Trade Name Freq PRN Reason Stop Dose Admin Acetaminophen 650 mg 10/28/21 20:19 Acetaminophen 325 Mg Tab PO Q4H PRN Pain, Mild (1-3) Aspirin 325 mg 10/30/21 10:00 Aspirin 325 Mg Tab PO QDAY [facility] Atorvastatin Calcium 40 mg 10/28/21 22:00 10/29/21 03:17 Atorvastatin 40 Mg Tab PO 40 mg QHS [facility] Administration Bisacodyl 10 mg 10/28/21 20:19 Bisacodyl 10 Mg Rect Supp [place] QDAY PRN Constipation Dextrose 50 ml 10/28/21 20:38 Dextrose 50% In Water (25gm) 50 Ml Syringe IV Q30MIN PRN Hypoglycemia Protocol Insulin Human Lispro 0 unit 10/29/21 21:00 Insulin Lispro 100 Unit/Ml SUB-Q Q6HR [facility] Protocol Magnesium Hydroxide 30 ml 10/28/21 20:19 Magnesium Hydroxide (Mom) Oral Liqd Udc PO Q4H PRN Constipation Metoclopramide HCl 10 mg 10/28/21 20:19 Metoclopramide 10 Mg Tab PO Q6H PRN Nausea And Vomiting Morphine Sulfate 2 mg 10/28/21 20:19 Morphine 4 Mg/1 Ml Inj IV Q14H PRN Pain , Severe (7-10) Ondansetron HCl 4 mg 10/28/21 20:19 Ondansetron 4 Mg/2 Ml Inj IV Q8H PRN Nausea And Vomiting Oxycodone/Acetaminophen 1 tab 10/28/21 20:19 Oxycodone /Acetaminophen 5-325mg Tab PO Q6H PRN Pain, Moderate (4-6) Promethazine HCl 25 mg 10/28/21 20:19 Promethazine 25 Mg Rect Supp [place] Q6H PRN Nausea And Vomiting Sodium Chloride 10 ml 10/28/21 20:19 Sodium Chloride 0.9% 10 Ml Flush Syringe IV PRN PRN LINE FLUSH <ZORAIDA DIETRICH - Last Filed: 10/30/21 07:30> Assessment and Plan Assessment and plan: I saw and evaluated the patient. I agree with the findings and the plan of care as documented in the Nurse Practitioner's~note, with the following corrections and additions. Hospitalist Physical - Constitutional Vitals: Temp Pulse Resp BP Pulse Ox 98.1 F 56 L 17 134/69 99 10/30/21 03:00 10/30/21 07:00 10/30/21 07:00 10/30/21 07:00 10/30/21 07:00 HEART Score - HEART Score Troponin: Troponin T < 0.010 ng/mL (0.00-0.029) 10/28/21 Unknown Results - Labs CBC & Chem 7: 10/30/21 04:21 10/30/21 04:21 Labs: Laboratory Last Values WBC 3.8 K/mm3 (4.5-11.0) L 10/30/21 04:21 RBC 4.14 M/mm3 (3.65-5.03) 10/30/21 04:21 Hgb 12.5 gm/dl (10.1-14.3) 10/30/21 04:21 Hct 37.8 % (30.3-42.9) 10/30/21 04:21 MCV 92 fl (79-97) 10/30/21 04:21 MCH 30 pg (28-32) 10/30/21 04:21 MCHC 33 % (30-34) 10/30/21 04:21 RDW 12.8 % (13.2-15.2) L 10/30/21 04:21 Plt Count 103 K/mm3 (140-440) L 10/30/21 04:21 Lymph % (Auto) 33.2 % (13.4-35.0) 10/28/21 Unknown [place] % (Auto) 7.8 % (0.0-7.3) H 10/28/21 Unknown Eos % (Auto) 3.5 % (0.0-4.3) 10/28/21 Unknown Baso % (Auto) 0.5 % (0.0-1.8) 10/28/21 Unknown Lymph # (Auto) 1.5 K/mm3 (1.2-5.4) 10/28/21 Unknown [place] # (Auto) 0.3 K/mm3 (0.0-0.8) 10/28/21 Unknown Eos # (Auto) 0.2 K/mm3 (0.0-0.4) 10/28/21 Unknown Baso # (Auto) 0.0 K/mm3 (0.0-0.1) 10/28/21 Unknown Seg Neutrophils % 55.0 % (40.0-70.0) 10/28/21 Unknown Seg Neutrophils # 2.4 K/mm3 (1.8-7.7) 10/28/21 Unknown PT 14.8 Sec. (12.2-14.9) 10/30/21 04:21 INR 1.04 (0.87-1.13) 10/30/21 04:21 APTT 29.2 Sec. (24.2-36.6) 10/30/21 04:21 Thrombin Time 25.7 Sec. (15.1-19.6) H 10/28/21 Unknown Sodium 136 mmol/L (137-145) L 10/30/21 04:21 Potassium 3.9 mmol/L (3.6-5.0) 10/30/21 04:21 Chloride 101.0 mmol/L (98-107) 10/30/21 04:21 Carbon Dioxide 27 mmol/L (22-30) 10/30/21 04:21 Anion Gap 12 mmol/L 10/30/21 04:21 BUN 10 mg/dL (7-17) 10/30/21 04:21 Creatinine 0.4 mg/dL (0.6-1.2) L 10/30/21 04:21 Estimated GFR > 60 ml/min 10/30/21 04:21 BUN/Creatinine Ratio 25 % 10/30/21 04:21 Glucose 239 mg/dL (65-100) H 10/30/21 04:21 POC Glucose 355 mg/dL (70-105) H 10/29/21 21:39 Hemoglobin A1c 8.6 % (4-6) H 10/29/21 10:57 Calcium 8.4 mg/dL (8.4-10.2) 10/30/21 04:21 Total Bilirubin 0.50 mg/dL (0.1-1.2) 10/28/21 Unknown AST 63 units/L (5-40) H 10/28/21 Unknown ALT 70 units/L (7-56) H 10/28/21 Unknown Alkaline Phosphatase 253 units/L (35-129) H 10/28/21 Unknown Total Creatine Kinase 34 units/L (30-135) 10/28/21 Unknown CK-MB (CK-2) 1.5 ng/mL (0.0-4.0) 10/28/21 Unknown CK-MB (CK-2) Rel Index 4.4 (0-4) H 10/28/21 Unknown Troponin T < 0.010 ng/mL (0.00-0.029) 10/28/21 Unknown Total Protein 6.8 g/dL (6.3-8.2) 10/28/21 Unknown Albumin 3.3 g/dL (3.9-5) L 10/28/21 Unknown Albumin/Globulin Ratio 0.9 % 10/28/21 Unknown Triglycerides 126 mg/dL (2-149) 10/29/21 06:03 Cholesterol 134 mg/dL (50-199) 10/29/21 06:03 LDL Cholesterol Direct 76 mg/dL (50-130) 10/29/21 06:03 HDL Cholesterol 38 mg/dL (40-59) L 10/29/21 06:03 Cholesterol/HDL Ratio 3.52 % 10/29/21 06:03 [place]/IV: Voiding Method Toilet Active Medications - Current Medications Current Medications: Generic Name Dose Route Start Last Admin Trade Name Freq PRN Reason Stop Dose Admin Acetaminophen 650 mg 10/28/21 20:19 10/29/21 11:42 Acetaminophen 325 Mg Tab PO 650 mg Q4H PRN Administration Pain, Mild (1-3) Aspirin 325 mg 10/30/21 10:00 Aspirin 325 Mg Tab PO QDAY ANNM ARIE Atorvastatin Calcium 40 mg 10/28/21 22:00 10/29/21 21:42 Atorvastatin 40 Mg Tab PO 40 mg QHS ANN MARIE Administration Bisacodyl 10 mg 10/28/21 20:19 Bisacodyl 10 Mg Rect Supp [place] QDAY PRN Constipation Dextrose 50 ml 10/28/21 20:38 Dextrose 50% In Water (25gm) 50 Ml Syringe IV Q30MIN PRN Hypoglycemia Protocol Famotidine 20 mg 10/30/21 10:00 Famotidine 20 Mg Tab PO QDAY [facility] Insulin Glargine 10 units 10/29/21 22:00 10/29/21 21:40 Insulin Glargine 100 Units/Ml SUB-Q 10 units QHS [facility] Administration Insulin Human Lispro 0 unit 10/29/21 11:30 10/29/21 21:48 Insulin Lispro 100 Unit/Ml SUB-Q 8 unit ACHS [facility] Administration Protocol Magnesium Hydroxide 30 ml 10/28/21 20:19 Magnesium Hydroxide (Mom) Oral Liqd Udc PO Q4H PRN Constipation Metoclopramide HCl 10 mg 10/28/21 20:19 Metoclopramide 10 Mg Tab PO Q6H PRN Nausea And Vomiting Morphine Sulfate 2 mg 10/28/21 20:19 Morphine 4 Mg/1 Ml Inj IV Q14H PRN Pain , Severe (7-10) Nicotine 14 mg 10/30/21 10:00 Nicotine 14 Mg/24 Hr Patch TD QDAY [facility] Ondansetron HCl 4 mg 10/28/21 20:19 Ondansetron 4 Mg/2 Ml Inj IV Q8H PRN Nausea And Vomiting Oxycodone/Acetaminophen 1 tab 10/28/21 20:19 Oxycodone /Acetaminophen 5-325mg Tab PO Q6H PRN Pain, Moderate (4-6) Promethazine HCl 25 mg 10/28/21 20:19 Promethazine 25 Mg Rect Supp [place] Q6H PRN Nausea And Vomiting Sodium Chloride 10 ml 10/28/21 20:19 Sodium Chloride 0.9% 10 Ml Flush Syringe IV PRN PRN LINE FLUSH
[2021-10-29] MEDS: INSULIN LISPRO 100 UNIT/ML SUB-Q SCH ×3 (11:42→21:48)
--- NOTE | 2021-10-29 12:56 | Consultation ---
History of Present Illness Consult date: 10/29/21 Chief complaint: CVA History of present illness: Consult for post TPA patient now back to [place]. Past History Past Medical History: diabetes, seizures, stroke Past Surgical History: No surgical history, Other (Reviewed) Social history: , lives with family. denies: smoking, alcohol abuse, prescription drug abuse Family history: diabetes, hypertension Medications and Allergies Allergies Allergy/AdvReac Type Severity Reaction Status Date / Time Penicillins Allergy Hives Verified 10/28/21 18:55 Home Medications Medication Instructions Recorded Confirmed Last Taken Type Dilantin 300 mg PO QHS 10/29/21 10/29/21 Unknown History Active Meds: Active Medications Acetaminophen (Acetaminophen 325 Mg Tab) 650 mg PO Q4H PRN PRN Reason: Pain, Mild (1-3) Last Admin: 10/29/21 11:42 Dose: 650 mg Aspirin (Aspirin 325 Mg Tab) 325 mg PO QDAY [facility] Atorvastatin Calcium (Atorvastatin 40 Mg Tab) 40 mg PO QHS [facility] Last Admin: 10/29/21 03:17 Dose: 40 mg Bisacodyl (Bisacodyl 10 Mg Rect Supp) 10 mg [place] QDAY PRN PRN Reason: Constipation Dextrose (Dextrose 50% In Water (25gm) 50 Ml Syringe) 50 ml IV Q30MIN PRN; Protocol PRN Reason: Hypoglycemia Insulin Human Lispro (Insulin Lispro 100 Unit/Ml) 0 unit SUB-Q [facility]; Protocol Last Admin: 10/29/21 11:42 Dose: 6 unit Magnesium Hydroxide (Magnesium Hydroxide (Mom) Oral Liqd Udc) 30 ml PO Q4H PRN PRN Reason: Constipation Metoclopramide HCl (Metoclopramide 10 Mg Tab) 10 mg PO Q6H PRN PRN Reason: Nausea And Vomiting Morphine Sulfate (Morphine 4 Mg/1 Ml Inj) 2 mg IV Q14H PRN PRN Reason: Pain , Severe (7-10) Ondansetron HCl (Ondansetron 4 Mg/2 Ml Inj) 4 mg IV Q8H PRN PRN Reason: Nausea And Vomiting Oxycodone/Acetaminophen (Oxycodone /Acetaminophen 5-325mg Tab) 1 tab PO Q6H PRN PRN Reason: Pain, Moderate (4-6) Promethazine HCl (Promethazine 25 Mg Rect Supp) 25 mg [place] Q6H PRN PRN Reason: Nausea And Vomiting Sodium Chloride (Sodium Chloride 0.9% 10 Ml Flush Syringe) 10 ml IV PRN PRN PRN Reason: LINE FLUSH Physical Examination - Vital Signs Vital Signs: Vital Signs Pulse Resp 71 10 L 10/28/21 18:41 10/28/21 18:41 - Physical Exam Narrative exam: The patient is alert , moves all 4 extremities , gait is normal . Results - Laboratory Findings CBC and BMP: 10/28/21 Unknown 10/28/21 Unknown Abnormal Lab Findings: Abnormal Labs 10/28/21 10/28/21 10/28/21 20:50 Unknown Unknown WBC 4.4 L MCHC 35 H RDW 12.9 L Plt Count 113 L [place] % (Auto) 7.8 H Thrombin Time 25.7 H Sodium Creatinine Glucose POC Glucose 329 H Hemoglobin A1c AST ALT Alkaline Phosphatase CK-MB (CK-2) Rel Index Albumin HDL Cholesterol 10/28/21 10/29/21 10/29/21 Unknown 06:03 08:05 WBC MCHC RDW Plt Count [place] % (Auto) Thrombin Time Sodium 135 L Creatinine 0.5 L Glucose 432 H POC Glucose 260 H Hemoglobin A1c AST 63 H ALT 70 H Alkaline Phosphatase 253 H CK-MB (CK-2) Rel Index 4.4 H Albumin 3.3 L HDL Cholesterol 38 L 10/29/21 10:57 WBC MCHC RDW Plt Count [place] % (Auto) Thrombin Time Sodium Creatinine Glucose POC Glucose Hemoglobin A1c 8.6 H AST ALT Alkaline Phosphatase CK-MB (CK-2) Rel Index Albumin HDL Cholesterol Assessment and Plan 1. TIA /CVA - complete clinical resolution . 2. Reviewed CTA and CT . 3. MRI Brain - awaits if normal patient can go home . 4. Risk factors for CVA discussed . 5. Follow in office Dr. Figueroa
--- NOTE | 2021-10-29 12:58 | Vascular Lab Report ---
DUPLEX DOPPLER ULTRASOUND CAROTID, BILATERAL INDICATION / CLINICAL INFORMATION: stroke. COMPARISON: CTA neck 10/28/2021. FINDINGS: RIGHT CAROTID: No significant atherosclerotic plaque. - PLAQUE ESTIMATE (%): None. - CCA velocity: 75 cm/sec. - ICA peak systolic velocity: 112 cm/sec. - ICA/CCA PSV Ratio: Less than 2. Right Vertebral Artery: Antegrade flow. LEFT CAROTID: Minimal atherosclerotic plaque. - PLAQUE ESTIMATE (%): < 50% - CCA velocity: 77 cm/sec. - ICA peak systolic velocity: 88 cm/sec. - ICA/CCA PSV Ratio: Less than 2. Left Vertebral Artery: Antegrade flow. IMPRESSION: 1. Right Internal Carotid Artery: Less than 50% diameter stenosis. 2. Left Internal Carotid Artery: Less than 50% diameter stenosis. Velocity criteria are extrapolated from diameter data as defined by the Society of Radiologists in Ul trasound Consensus Conference, Radiology 2003; 229;340-346. NO STENOSIS (NORMAL) - Plaque = none; ICA PSV < 125 cm/sec; ICA/CCA PSV Ratio < 2.0 <50% STENOSIS - Plaque < 50%; ICA PSV < 125 cm/sec; ICA/CCA PSV Ratio < 2.0 50-69% STENOSIS - Plaque > 50%; ICA PSV = 125-230 cm/sec; ICA/CCA PSV Ratio = 2.0-4.0 >70% BUT <100% STENOSIS - Plaque > 50%; ICA PSV > 230 cm/sec; ICA/CCA PSV Ratio > 4.0 NEAR OCCLUSION - Plaque = visible lumen; ICA PSV = high/low/none; ICA/CCA PSV Ratio = variable TOTAL OCCLUSION - Plaque = no lumen; ICA PSV = none; ICA/CCA PSV Ratio = N/A Scribed by: Katelynn Cobos RDMS, RVT, RMSKS Scribed: 10/29/2021 11:51 AM I have reviewed the images, agree with this report, and edited this report as needed. Signer Name: Ronn Alfredo MD Signed: 10/29/2021 12:54 PM Workstation Name: [id number]
--- NOTE | 2021-10-29 18:10 | Electrocardiograph Report ---
[facility] Test Date: 2021-10-28 Test Time: 19:12:07 Pat Name: JARAD JACKMAN Department: Room: A258 1 Gender: F Audio Video Repairer: FABIOLA : 1970 Requested By: MINDA CEBALLOS Order Number: [id number] Reading MD: Omari Cadena Measurements Intervals [place] Rate: 63 P: 54 PA: 181 QRS: -45 QRSD: 102 T: 46 QT: 465 QTc: 477 Interpretive Statements Sinus rhythm LAD, consider left anterior fascicular block Consider anteroseptal infarct No previous ECG available for comparison Electronically Signed On 10-29-2021 18:09:38 EDT by Omari Cadena
--- NOTE | 2021-10-29 20:23 | Cat Scan Report ---
CT head without contrast INDICATION : Follow up 24hrs post tPA. TECHNIQUE: Axial imaging performed from the skull apex through the skull base without the use of con trast. All CT scans at this location are performed using CT dose reduction for ALARA by means of aut omated exposure control. COMPARISON: Previous day. FINDINGS: Parenchyma: No mass, stroke or hemorrhage. Ventricles: Ventricles are normal in size and appear symmetric. Soft tissues: Soft tissues including the orbits appear normal. Bones: No acute osseous abnormality. Sinuses: Sinuses and mastoid air cells are clear. IMPRESSION: No acute abnormality. Signer Name: Ion Bell MD Signed: 10/29/2021 8:19 PM Workstation Name: [id number]
[2021-10-29] MEDS ORDERED: INSULIN LISPRO 100 UNIT/ML SUB-Q SCH (21:00)
[2021-10-29] MEDS ORDERED: PHENYTOIN 100 MG CAPSULE.ER PO SCH (22:00)
[2021-10-29] MEDS ORDERED: INSULIN GLARGINE 100 UNITS/ML SUB-Q SCH (22:00)
[2021-10-29] MEDS ORDERED: DILANTIN 300 MG PO SCH (22:00)
[2021-10-30 05:19] LABS: Hematocrit 37.8 % (30.3-42.9); Hemoglobin 12.5 gm/dl (10.1-14.3); Mean Corpuscular HGB Conc 33 % (30-34); Mean Corpuscular Volume 92 fl (79-97); Platelet Count 103 K/mm3 (140-440); Red Blood Count 4.14 M/mm3 (3.65-5.03); Red Cell Distribution Width 12.8 % (13.2-15.2)
[2021-10-30 05:28] LABS: INR 1.04 (0.87-1.13)
[2021-10-30 05:29] LABS: Partial Thromboplastin Time 29.2 Sec. (24.2-36.6)
[2021-10-30 05:32] LABS: Blood Urea Nitrogen 10 mg/dL (7-17); Calcium 8.4 mg/dL (8.4-10.2); Hemolysis Index 3
[2021-10-30 05:37] LABS: BUN/Creatinine Ratio 25
[2021-10-30] MEDS: INSULIN LISPRO 100 UNIT/ML SUB-Q SCH ×3 (08:30→16:32)
[2021-10-30] MEDS ORDERED: FAMOTIDINE 20 MG TAB PO SCH (10:00)
[2021-10-30] MEDS ORDERED: ASPIRIN 325 MG TAB PO SCH (10:00)
[2021-10-30] MEDS ORDERED: NICOTINE 14 MG/24 HR PATCH TD SCH (10:00)
[2021-10-30] MEDS ORDERED: ENOXAPARIN 40 MG/0.4 ML INJ SUB-Q SCH (10:00)
[2021-10-30] MEDS ORDERED: ENOXAPARIN 30 MG/0.3 ML INJ SUB-Q SCH (10:00)
--- NOTE | 2021-10-30 12:41 | Progress Note ---
Assessment and Plan Acute CVA s/p tpA Left hemiparesis Seizure disorder Obesity (BMI 30.0-34.9) DM II - no acute bleeding noted / reported - awaiting MRI and will follow - continue secondary prevention measures re: BP control, lipid therapy etc - tobacco abstinence strongly counseled to patient and at bedside - continue anti-platelet therapy - continue accuchecks with glycemic control per SSI for target blood glucose of < 180 mg/dL; avoid hypoglycemia - prn supplemental oxygen for target O2 sat's > 90% acutely - aspiration precautions - prn bronchodilators with pulmonary hygiene per RT - avoid nephrotoxins, renally dose all medications - AB's per ID rec's - prn analgesia per pain score - Maintenance of sleep-wake cycle, avoid delirium - G.I. & VTE prophylaxis - PT/OT/ROM exercises - continue mobility protocols for pressure ulcer prophylaxis - Monitor hemodynamics closely - continue other care per attending / other consultants - discharge planning ongoing concurrently .... Re-evaluate in am & prn Subjective Date of service: 10/30/21 Principal diagnosis: Acute CVA s/p tpA; Left hemiparesis; Seizure disorder; Obesity; DM II Interval history: Patient is seen today for: Acute CVA s/p tpA; Left hemiparesis; Seizure disorder; Obesity; DM II Seen and examined at bedside; 24hour events reviewed; nursing and respiratory care staff consulted; no adverse overnight events reported to me; resting peacefully in bed; denies headache; denies chest pains or palpitations; states she noted minimal spotting but no gabrielle hematuria or vaginal bleeding Objective Vital Signs - 12hr 10/30/21 10/30/21 10/30/21 01:00 02:00 03:00 Temperature 98.1 F Pulse Rate 60 55 L 55 L Pulse Rate [ From Monitor] Respiratory 19 18 19 Rate Blood Pressure 141/67 141/67 115/65 O2 Sat by Pulse 99 100 100 Oximetry 10/30/21 10/30/21 10/30/21 04:00 05:00 06:00 Temperature Pulse Rate 55 L 53 L 60 Pulse Rate [ 57 L From Monitor] Respiratory 18 18 19 Rate Blood Pressure 115/65 115/80 115/80 O2 Sat by Pulse 100 97 100 Oximetry 10/30/21 10/30/21 10/30/21 07:00 07:55 08:00 Temperature 97.9 F Pulse Rate 56 L 52 L 52 L Pulse Rate [ 52 L From Monitor] Respiratory 17 15 Rate Blood Pressure 134/69 122/52 O2 Sat by Pulse 99 100 Oximetry 10/30/21 10/30/21 10/30/21 08:27 09:00 10:00 Temperature Pulse Rate 59 L 59 L Pulse Rate [ From Monitor] Respiratory 16 19 Rate Blood Pressure 120/53 114/46 O2 Sat by Pulse 94 96 99 Oximetry 10/30/21 10/30/21 11:00 12:00 Temperature 98.3 F Pulse Rate 75 60 Pulse Rate [ 56 L From Monitor] Respiratory 19 22 Rate Blood Pressure 124/48 126/52 O2 Sat by Pulse 99 100 Oximetry Constitutional: no acute distress Eyes: non-icteric ENT: oropharynx moist Neck: supple, no lymphadenopathy, no JVD Effort: normal Ascultation: Bilateral: clear Percussion: Bilateral: not dull Cardiovascular: regular rate and rhythm Gastrointestinal: normoactive bowel sounds, hypoactive bowel sounds, soft, non- tender, non-distended Integumentary: normal Extremities: no cyanosis, no edema, pulses normal, no ischemia or petechiae Neurologic: non-focal exam (grossly), pupils equal and round, CN II-XII normal Psychiatric: mood appropriate, affect normal CBC and BMP: 10/30/21 04:21 10/30/21 04:21 ABG, PT/INR, D-dimer: PT/INR, D-dimer PT 14.8 Sec. (12.2-14.9) 10/30/21 04:21 INR 1.04 (0.87-1.13) 10/30/21 04:21 Abnormal lab findings: Abnormal Labs 10/28/21 10/28/21 10/28/21 20:50 Unknown Unknown WBC 4.4 L MCHC 35 H RDW 12.9 L Plt Count 113 L Keith % (Auto) 7.8 H Thrombin Time 25.7 H Sodium Creatinine Glucose POC Glucose 329 H Hemoglobin A1c AST ALT Alkaline Phosphatase CK-MB (CK-2) Rel Index Albumin HDL Cholesterol 10/28/21 10/29/21 10/29/21 Unknown 06:03 08:05 WBC MCHC RDW Plt Count Keith % (Auto) Thrombin Time Sodium 135 L Creatinine 0.5 L Glucose 432 H POC Glucose 260 H Hemoglobin A1c AST 63 H ALT 70 H Alkaline Phosphatase 253 H CK-MB (CK-2) Rel Index 4.4 H Albumin 3.3 L HDL Cholesterol 38 L 10/29/21 10/29/21 10/29/21 10:57 11:35 16:20 WBC MCHC RDW Plt Count [place] % (Auto) Thrombin Time Sodium Creatinine Glucose POC Glucose 311 H 320 H Hemoglobin A1c 8.6 H AST ALT Alkaline Phosphatase CK-MB (CK-2) Rel Index Albumin HDL Cholesterol 10/29/21 10/30/21 10/30/21 21:39 04:21 04:21 WBC 3.8 L MCHC RDW 12.8 L Plt Count 103 L [place] % (Auto) Thrombin Time Sodium 136 L Creatinine 0.4 L Glucose 239 H POC Glucose 355 H Hemoglobin A1c AST ALT Alkaline Phosphatase CK-MB (CK-2) Rel Index Albumin HDL Cholesterol 10/30/21 10/30/21 08:06 11:44 WBC MCHC RDW Plt Count [place] % (Auto) Thrombin Time Sodium Creatinine Glucose POC Glucose 219 H 288 H Hemoglobin A1c AST ALT Alkaline Phosphatase CK-MB (CK-2) Rel Index Albumin HDL Cholesterol Allied health notes reviewed: nursing
--- NOTE | 2021-10-30 14:42 | Consultation ---
History of Present Illness Consult date: 10/28/21 History of present illness: PLEASE NOTE: This consultation was completed on 10/28/21, prior to an EMR account being opened for the ER arrival/ DOS, which precluded document placement at that time. [facility] Consult Note # Demographics Consult Type: Acute Stroke Level 1 (0-4.5 hrs) Patient Location: Emergency Room First Name: Sigrid Last Name: Adolfo Date of : 1970 Age: 51 Facility: [facility] Time of Initial Page ( Time): 10/28/2021, 18:22 Time of Return Call ( Time): 10/28/2021, 18:22 # HPI Chief Complaint: weakness (focal) History: Per EMS report, history of 10 strokes - complains of left droop & left weakness. Last stroke reportedly one year ago. No reported history of brain hemorrhage per patient. Very limited additional clinical information from ER & EMS. Last Known Normal: I have collected independent history specific to time last normal or last known well. We have collaborated with the provider and at this time, we have the most current timeline with the information that is available. [id number] Duration: constant minutes Possible Thrombolytic candidate: not on warfarin or NOACs no intracranial hemorrhage history Per patient report # Scores Time of exam and NIHSS ( Time): 10/28/2021, 18:07 Level of Consciousness 1a: [0] = Alert; keenly responsive LOC Questions 1b: [1] = Answers one correctly LOC Commands 1c: [0] = Performs both tasks correctly Best Gaze 2: [0] = Normal Visual 3: [0] = No visual loss Facial Palsy 4: [2] = Partial paralysis Motor Arm Left 5a: [4] = No movement Motor Arm Right 5b: [0] = No drift Motor Leg Left 6a: [4] = No movement Motor Leg Right 6b: [0] = No drift Limb Ataxia 7: [0] = Absent Sensory 8: [2] = Severe to total sensory loss Best Language 9: [0] = No aphasia Dysarthria 10: [1] = [id number]-lm-[id number] dysarthria Extinction and Inattention 11: [0] = No abnormality NIHSS Total: 14 VAN Screening: Positive # Exam SBP: 130 DBP: 72 Mental Status: awake follows commands Said month was May Language: dysarthria Cranial Nerves: left facial droop # ROS Pulmonary: no shortness of breath Cardiovascular: chest pain # PMH-FH-SH Past Medical History: stroke Allergies: Unknown # Data Glucose: [address] personally read by me ( Time): 10/28/2021, 18:[address]: no bleed preliminarily reviewed by me, please refer to radiology read for official reading # Assessment Impression: Ischemic Stroke (Acute) Rule-out aortic dissection # Plan Thrombolytic/Intervention: IV thrombolytic and possible IA candidate Thrombolytic Dosing: IV alteplase 0.9 mg/kg, max dose 90 mg; 10% of dose given over 1 minute IVP, remaining 90% given as infusion over 1 hour Possible IA Candidate: CTA pending Time IV Thrombolytic Recommended ( Time): 10/28/2021, 18:18 Labs: CBC comprehensive metabolic panel ESR hemoglobin A1c lipid panel troponin TSH urine drug screen ua Imaging: (urgency: STAT): CT Angiogram Head and CT Angiogram Neck AND call back with results if abnormal CTA chest to rule-out aortic dissection Imaging: (urgency: routine): MRI Brain without contrast Diagnostic Test: echo without bubble study Therapy/Evaluation: NPO until swallow evaluation PT/OT evaluation speech/swallow consultation Medication: clopidogrel (Plavix) 75 mg daily start statin with goal of LDL < 70 DVT Prophylaxis: SCD chemical DVT prophylaxis Thrombolytic Administration Recommendations: I reviewed the risks/benefits/alternatives of IV thrombolytic therapy with the patient. They understand there is potential of life threatening hemorrhage from IV thrombolysis. I stated that I believe benefits outweighs risk. They wish to proceed with IV thrombolytic therapy. I have collected independent history specific to time last normal or last known well. We have collaborated with the ED provider and at this time, we have the most current timeline with the information that is available. BP goal< 180/105 for 24hrs post Thrombolytic administration Use Labetolol 10-20mg IV prn or Nicardipine gtt to maintain BP parameters No antiplatelets or anticoagulants for next 24 hrs unless indicated for emergent IA procedure or other life threatening situation Other: If patient has any neurological deterioration please call me back immediately telemetry monitoring I have discussed my recommendations with the referring provider Disposition: admit # Logistics Telemedicine: Interactive 2 way audio and visual telecommunication technology was utilized during this visit # Demographics First Name: Sigrid Last Name: Adolfo Facility: [facility] Electronically signed at 10/28/2021 18:24 (Eastern Time) by Kamaljit Snow MD Past History Past Medical History: diabetes, seizures, stroke Past Surgical History: No surgical history, Other (Reviewed) Social history: , lives with family. denies: smoking, alcohol abuse, prescription drug abuse Family history: diabetes, hypertension Medications and Allergies Allergies Allergy/AdvReac Type Severity Reaction Status Date / Time Penicillins Allergy Hives Verified 10/28/21 18:55 Home Medications Medication Instructions Recorded Confirmed Last Taken Type Dilantin 300 mg PO QHS 10/29/21 10/29/21 Unknown History Active Meds: Active Medications Acetaminophen (Acetaminophen 325 Mg Tab) 650 mg PO Q4H PRN PRN Reason: Pain, Mild (1-3) Last Admin: 10/29/21 11:42 Dose: 650 mg Aspirin (Aspirin 325 Mg Tab) 325 mg PO QDAY [facility] Last Admin: 10/30/21 09:12 Dose: 325 mg Atorvastatin Calcium (Atorvastatin 40 Mg Tab) 40 mg PO QHS [facility] Last Admin: 10/29/21 21:42 Dose: 40 mg Bisacodyl (Bisacodyl 10 Mg Rect Supp) 10 mg DC QDAY PRN PRN Reason: Constipation Dextrose (Dextrose 50% In Water (25gm) 50 Ml Syringe) 50 ml IV Q30MIN PRN; Protocol PRN Reason: Hypoglycemia Enoxaparin Sodium (Enoxaparin 40 Mg/0.4 Ml Inj) 40 mg SUB-Q QDAY@1000 [facility] Last Admin: 10/30/21 09:12 Dose: 40 mg Famotidine (Famotidine 20 Mg Tab) 20 mg PO QDAY [facility] Last Admin: 10/30/21 09:12 Dose: 20 mg Insulin Glargine (Insulin Glargine 100 Units/Ml) 15 units SUB-Q QHS [facility] Insulin Human Lispro (Insulin Lispro 100 Unit/Ml) 0 unit SUB-Q [facility]; Protocol Last Admin: 10/30/21 11:48 Dose: 6 unit Magnesium Hydroxide (Magnesium Hydroxide (Mom) Oral Liqd Udc) 30 ml PO Q4H PRN PRN Reason: Constipation Metoclopramide HCl (Metoclopramide 10 Mg Tab) 10 mg PO Q6H PRN PRN Reason: Nausea And Vomiting Morphine Sulfate (Morphine 4 Mg/1 Ml Inj) 2 mg IV Q14H PRN PRN Reason: Pain , Severe (7-10) Nicotine (Nicotine 14 Mg/24 Hr Patch) 14 mg TD QDAY [facility] Last Admin: 10/30/21 09:14 Dose: Not Given Ondansetron HCl (Ondansetron 4 Mg/2 Ml Inj) 4 mg IV Q8H PRN PRN Reason: Nausea And Vomiting Oxycodone/Acetaminophen (Oxycodone /Acetaminophen 5-325mg Tab) 1 tab PO Q6H PRN PRN Reason: Pain, Moderate (4-6) Promethazine HCl (Promethazine 25 Mg Rect Supp) 25 mg DC Q6H PRN PRN Reason: Nausea And Vomiting Sodium Chloride (Sodium Chloride 0.9% 10 Ml Flush Syringe) 10 ml IV PRN PRN PRN Reason: LINE FLUSH Physical Examination - Vital Signs Vital Signs: Vital Signs Pulse Resp 71 10 L 10/28/21 18:41 10/28/21 18:41 Results - Laboratory Findings CBC and BMP: 10/30/21 04:21 10/30/21 04:21 Abnormal Lab Findings: Abnormal Labs 10/28/21 10/28/21 10/28/21 20:50 Unknown Unknown WBC 4.4 L MCHC 35 H RDW 12.9 L Plt Count 113 L [place] % (Auto) 7.8 H Thrombin Time 25.7 H Sodium Creatinine Glucose POC Glucose 329 H Hemoglobin A1c AST ALT Alkaline Phosphatase CK-MB (CK-2) Rel Index Albumin HDL Cholesterol 10/28/21 10/29/21 10/29/21 Unknown 06:03 08:05 WBC MCHC RDW Plt Count [place] % (Auto) Thrombin Time Sodium 135 L Creatinine 0.5 L Glucose 432 H POC Glucose 260 H Hemoglobin A1c AST 63 H ALT 70 H Alkaline Phosphatase 253 H CK-MB (CK-2) Rel Index 4.4 H Albumin 3.3 L HDL Cholesterol 38 L 10/29/21 10/29/21 10/29/21 10:57 11:35 16:20 WBC MCHC RDW Plt Count [place] % (Auto) Thrombin Time Sodium Creatinine Glucose POC Glucose 311 H 320 H Hemoglobin A1c 8.6 H AST ALT Alkaline Phosphatase CK-MB (CK-2) Rel Index Albumin HDL Cholesterol 10/29/21 10/30/21 10/30/21 21:39 04:21 04:21 WBC 3.8 L MCHC RDW 12.8 L Plt Count 103 L [place] % (Auto) Thrombin Time Sodium 136 L Creatinine 0.4 L Glucose 239 H POC Glucose 355 H Hemoglobin A1c AST ALT Alkaline Phosphatase CK-MB (CK-2) Rel Index Albumin HDL Cholesterol 10/30/21 10/30/21 08:06 11:44 WBC MCHC RDW Plt Count [place] % (Auto) Thrombin Time Sodium Creatinine Glucose POC Glucose 219 H 288 H Hemoglobin A1c AST ALT Alkaline Phosphatase CK-MB (CK-2) Rel Index Albumin HDL Cholesterol
--- NOTE | 2021-10-30 16:42 | Magnetic Resonance Report ---
MR brain wo con INDICATION / CLINICAL INFORMATION: Acute CVA, weakness, slurred speech. TECHNIQUE: Multiplanar, multisequence MR images of the brain were obtained. COMPARISON: CT head October 29 2021 FINDINGS: INTRACRANIAL: No restricted diffusion. No hemorrhage. Ventricular caliber is normal. No extra-axial c ollection. No mass. No herniation. Major intracranial vascular flow voids are preserved. Small quant ity of periventricular and centrum semiovale T2 white matter hyperintensities most consistent with mi ld sequela of chronic microvascular disease. ORBITS: No significant abnormality of visualized orbits. SINUSES / MASTOIDS: No significant abnormality of visualized sinuses and mastoid air cells. ADDITIONAL FINDINGS: None. IMPRESSION: 1. No acute infarction. No significant intracranial abnormality. Signer Name: Herman Jade MD Signed: 10/30/2021 4:37 PM Workstation Name: [id number]
[2021-10-30] MEDS ORDERED: INSULIN REGULAR, HUMAN 100 UNITS/1 ML SUB-Q SCH (17:30)
[2021-10-30 18:07] VITALS: BP 126/70
[2021-10-30] MEDS ORDERED: INSULIN GLARGINE 100 UNITS/ML SUB-Q SCH ×2 (18:35→22:00)
--- NOTE | 2021-10-30 18:36 | Discharge Summary ---
<ANDREWS GARCIA - Last Filed: 10/30/21 19:04> Providers - Providers Date of Admission: 10/28/21 20:20 Date of discharge: 10/30/21 Attending physician: ZORAIDA DIETRICH MD 10/28/21 20:20 Occupational Therapy Evaluate and Treat [CONS] Routine Comment: Reason For Exam: Neuro deficits Physical Therapy Evaluation and Treat [CONS] Routine Comment: Reason For Exam: Neuro deficits 10/28/21 20:38 Speech Therapy Evaluation and Treat [CONS] Routine Reason For Exam: cva 10/29/21 08:57 Consult to Physician [CONS] Routine Comment: noted/ savannah Consulting Provider: FRANCY LUA Physician Instructions: Reason For Exam: critical care 10/29/21 09:25 Consult to Physician [CONS] Routine Comment: left mess./ savannah Consulting Provider: CHRISTIAN IRIZARRY Physician Instructions: Reason For Exam: stroke Primary care physician: ASJI FISCHER Hospitalization Reason for admission: Acute CVA/TIA Condition: Stable Hospital course: This is a 51-year-old female with known past medical history of recurrent TIA/CVA, seizure disorder, type 2 DM, and current tobacco dependence admitted for acute CVA s/p tPA Hospital Course to Date: 10/29: Fully AAO, on RA, no neuro deficits appreciated. Will repeat CT head/brain 24hrs post tPA. MRI brain and 2D echo also pending. Neurology consulted. Statin initiated, ASA and proph AC to start tomorrow, 24hrs post tPA. PT/OT/Speech ordered. Thorough discussion with patient in regards of condition and plan of care at the bedside. All questions and concerns were addressed at this time. Possible transfer to Telemetry in the morning if patient remains stable. [facility] is also following. 10/30: Patient remains stable. Repeat CT head and MRI brain with no acute findings. Neurology recommendations noted. Patient to follow up with Neurology within 7 to days 10 days. Patient provided with [facility] information f or primary care management. Patient to contact clinic tomorrow for appointment within 5 to 7 days. Patient remains hyperglycemic today, SSI and lantus adjusted. Plan of care discussed with patient and her at the bedside. All questions and concerns were addressed at this time. Patient verbalized understanding and agreed with current care plan. Assessment and Plan #Acute CVA (Cerebrovascular Accident) s/p tPA #History of multiple TIA/CVA - Presented with sudden onset of left-sided weakness, left facial droop, and slurred speech - CT head with No acute findings; CTA Neck/head with no significant stenosis - TeleNeurology saw patient in the ED, - tPA was administered, however patient did not complete full does. tPA was held due to patient c/o CP - Symptoms resolved this am, no neuro deficits appreciated - Repeat CT head/brainand MRI brain with no acute abnormality - 2D Echo reviewed, no PFO - Statin initiated - ASA and prophy AC initiated - Continue Neuro check per protocol - PT/OT/Speech ordered - Neurology consulted - [facility] is also following #Chest Pain-resolved - Patient c/o of CP in the ED while receiving tPA. tPA was hel - EKG with SR, no significant ST changes appreciated - Troponin neg X1 - Patient denied any CP, palpitation, nor any discomfort this am - CTA chest reviewed no evidence of PE - ASA and prophy AC to initiated #Type 2 Diabetes Mellitus with Hyperglycemia - Insulin dependent per patient, however, patient can't recall insulin name - Family to bring medications list - Hgb A1c 8.6 - SSI and BG check initiated ACHS - Lantus also added qhs for better control - While critically ill target blood glucose of 140-180 #Seizure Disorder - No acute activity this time, continue medical management. - Patient voiced she was on Dilantin, but she has not taking it for over a year - Resume home meds once list is available #Current Cigarette Smoker - Over 30 years cigarettes smoker, per patient a pack of cigarette last her a week - Smoking cessation education provided and quit line resource provided. Patient verbalized understanding and agree with current info - Nicotine patch ordered #Obesity (BMI 30.0-34.9) - Balanced diet, increase physical activity discharge. #GI/DVT Prophylaxis - PPI- Pepcid - SCDs to bilateral lower extremities while in bed #Advance Care Planning - Disease education data, care plan, diagnoses, and prognosis were discussed with patient at the bedside. Patient is a FULL code. Patient acknowledged understanding and agreed with current care plan. Disposition: HOME / SELF CARE / HOMELESS Final Discharge Diagnosis (Prints w/discharge instructions): Acute CVA/TIA. Uncontrolled Diabetes Mellitus Time spent for discharge: 35 Core Measure Documentation - Palliative Care Palliative Care/ Comfort Measures: Not Applicable - Core Measures Any of the following diagnoses?: stroke - Stroke Discharge Requirements Statin for LDL = or >70 mg/dl on DC: Yes Anticoag for atrial fib/atrial flutter: Not Applicable Antithrombotic for ischemic stroke: Yes Exam - Constitutional Vitals: Temp Pulse Resp BP Pulse Ox 98.1 F 63 16 126/70 100 10/30/21 15:00 10/30/21 18:00 10/30/21 18:00 10/30/21 18:00 10/30/21 18:00 General appearance: Present: no acute distress, obese - EENT Eyes: Present: PERRL, EOM intact ENT: hearing intact, clear oral mucosa - Neck Neck: Present: normal ROM - Respiratory Respiratory effort: normal Respiratory: bilateral: CTA - Cardiovascular Rhythm: regular Heart Sounds: Present: S1 & S2 - Extremities Extremities: no ischemia, pulses intact, pulses symmetrical Peripheral Pulses: within normal limits - Abdominal General gastrointestinal: Present: soft, non-distended, normal bowel sounds Female genitourinary: Present: deferred - Rectal Rectal Exam: deferred - Integumentary Integumentary: Present: clear, warm, dry - Musculoskeletal Musculoskeletal: strength equal bilaterally - Psychiatric Psychiatric: appropriate mood/affect, cooperative - Neurologic Neurologic: CNII-XII intact, moves all extremities - Allied Health Allied health notes reviewed: nursing, case management Plan Activity: no restrictions Diet: low fat, low cholesterol, low salt, diabetic, low carbohydrate Wound: open to air Special Instructions: smoking cessation Care Plan Goals: [facility] 7 days Follow up with Neurology within 7 to 10 days Take your medications as prescribed, and be compliant. Sedentary lifestyle changes, smoking cessation If your symptoms return, visit your nearest emergency department for further evaluation and treatment Follow up with: [facility] [Referring] - 7 Days CHRISTIAN IRIZARRY MD [Staff Physician] - 7 Days Prescriptions: Insulin Glargine [Lantus VIAL] 15 units SUB-Q QHS #90 vial AtorvaSTATin [Lipitor] 40 mg PO QHS #90 tablet Aspirin 325 mg PO QDAY #90 tablet Lispro Insulin [HumaLOG] See Protocol SUB-Q ACHS #90 vial Other Discharge Orders: Glucometer (Amb) Location: None Selected Glucometer supplies[Amb] Location: None Selected <ZORAIDA DIETRICH E - Last Filed: 10/30/21 19:43> Providers - Providers Date of Admission: 10/28/21 20:20 Attending physician: ZORAIDA DIETRICH MD 10/28/21 20:20 Occupational Therapy Evaluate and Treat [CONS] Routine Comment: Reason For Exam: Neuro deficits Physical Therapy Evaluation and Treat [CONS] Routine Comment: Reason For Exam: Neuro deficits 10/28/21 20:38 Speech Therapy Evaluation and Treat [CONS] Routine Reason For Exam: cva 10/29/21 08:57 Consult to Physician [CONS] Routine Comment: noted/ savannah Consulting Provider: FRANCY LUA Physician Instructions: Reason For Exam: critical care 10/29/21 09:25 Consult to Physician [CONS] Routine Comment: left mess./ savannah Consulting Provider: CHRISTIAN IRIZARRY Physician Instructions: Reason For Exam: stroke Primary care physician: SAJI FISCHER Hospitalization Hospital course: I saw and evaluated the patient. I agree with the findings and the plan of care as documented in the Nurse Practitioner's~note, with the following corrections and additions. Exam - Constitutional Vitals: Temp Pulse Resp BP Pulse Ox 98.1 F 63 16 126/70 100 10/30/21 15:00 10/30/21 18:00 10/30/21 18:00 10/30/21 18:00 10/30/21 18:00
== END 2021-10-30 19:13 | disposition home or self-care (01) | DRG 62 ==
LOC: EDBD → ED 18:01 → CC1 20:20
PROVIDERS: ADMIT Internal Medicine; ATTEND Internal Medicine
DX: G45.9 Transient cerebral ischemic attack, unspecified (principal); G81.94 Hemiplegia, unspecified affecting left nondominant side; G40.909 Epilepsy, unspecified, not intractable, without status epilepticus; E66.9 Obesity, unspecified; E11.65 Type 2 diabetes mellitus with hyperglycemia; F17.210 Nicotine dependence, cigarettes, uncomplicated; R07.89 Other chest pain; Z82.49 Family history of ischemic heart disease and other diseases of the circulatory system; Z83.3 Family history of diabetes mellitus; Z68.32 Body mass index [BMI] 32.0-32.9, adult; Z88.0 Allergy status to penicillin
CPT/HCPCS: 36415; 70450; 70496; 70498; 70551; 71275; 80048; 80053; 80061; 82550; 82553; 82962; 83036; 84484; 85025; 85027; 85610; 85670; 85730; 93005; 93306; 93880; G0378; Q9967; C8929; J1650; J1815; J2270; J2997; J7030